=== PATIENT | female | born 1935 | race Caucasian/White ===

== ENCOUNTER 2017-07-06 12:48 | Day surgery (SDC) | payer MEDICARE ==
[2017-07-06] MEDS ORDERED: CEFAZOLIN/Water 2 GM/20 ML SYRINGE ONE (13:21)
[2017-07-06] MEDS ORDERED: Ketorolac Tromethamine 30 MG/ML VIAL ONE (13:21)
[2017-07-06 13:42] LABS: #Basophils 0.1 thou/uL (0.0-0.2); #Eosinphils 0.1 thou/uL (0.0-0.7); #Lymphocytes 2.8 thou/uL (1.20-3.40); #Monocytes 0.5 thou/uL (0.11-0.59); #Neutrophils 6.4 thou/uL (1.40-6.50); %Eosinophils 0.5 % (0.0-10.0); %Neutrophils 65.4 % (42.0-75.0); Hemoglobin 14.3 g/dL (12.0-16.0); Mean Corpuscular HGB CONC 32.7 g/dL (32.0-36.0); Mean Corpuscular Hemoglobin 30.2 pg (27.0-31.0); Mean Corpuscular Volume 92.4 fl (81.0-99.0); Mean Platelet Volume 6.5 fL (7.4-10.4); Platelet Count 236 thou/uL (130-400); RBC Distribution Width 11.9 % (11.5-14.5); Red Blood Cell (RBC) Count 4.73 mill/uL (4.20-5.40); White Blood Cell (WBC) Count 9.8 thou/uL (4.8-10.8)
[2017-07-06 14:06] LABS: Anion Gap 18 mmol/L (10-20); BUN (Urea Nitrogen) 19 mg/dL (9.8-20.1); Calc. Creatinine Clearance 0 mL/min (70-130); Calcium 10.4 mg/dL (7.8-10.44); Carbon Dioxide 21 mmol/L (23-31); Chloride 101 mmol/L (98-107); Estimated GFR-MDRD 52; Glucose 95 mg/dL (83-110); Potassium 4.8 mmol/L (3.5-5.1); Sodium 135 mmol/L (136-145)
[2017-07-06] MEDS ORDERED: Fentanyl 100 MCG/2 ML VIAL ONE (15:39)
[2017-07-06] MEDS ORDERED: Bupivacaine/Epinephrine 0.25% 30 ML VIAL ONE (15:43)
[2017-07-06] MEDS ORDERED: Lidocaine 1% PF 5 ML VIAL ONE (16:52)
[2017-07-06] MEDS ORDERED: Ondansetron HCl/PF 4 MG/2 ML Vial ONE (16:52)
[2017-07-06] MEDS ORDERED: Succinylcholine Chloride 20 MG/ML 10 ml SYRINGE FS ONE (16:52)
[2017-07-06] MEDS ORDERED: Propofol 200 MG/20 ML VIAL ONE (16:52)
[2017-07-06] MEDS ORDERED: ePHEDrine/0.9% NaCl/PF SYRINGE 50 mg/10 ml ONE (16:52)
--- NOTE | 2017-07-06 16:58 | RAD ---
ONE VIEW CHEST: HISTORY: Preoperative exam. COMPARISON: 01/23/2017 FINDINGS: Atherosclerosis of the aorta. Normal cardiac silhouette. Pulmonary vessels and hilum are normal. C ostophrenic angles are clear. No consolidation or mass. No pneumothorax or osseous abnormalities. IMPRESSION: 1. No acute cardiopulmonary process. 2. Atherosclerosis. POS: KARI
[2017-07-06] MEDS ORDERED: HYDROcodone/Acetaminophen 5/325 mg Tablet ONE (18:36)
--- NOTE | 2017-07-07 14:43 | OP ---
DATE OF PROCEDURE: 07/06/2017 PREOPERATIVE DIAGNOSIS: Painful incarcerated umbilical hernia. POSTOPERATIVE DIAGNOSIS: Painful incarcerated umbilical hernia. OPERATION PERFORMED: Repair of incarcerated umbilical hernia with 4.6 cm Parietex composite hernia [facility]. SURGEON: Dr. Jett Cotton. ANESTHESIA: General endotracheal. INDICATIONS: The patient is an 81-year-old white female. She presented on the day of surgery compla ining of a painful umbilical mass. This was consistent with a recently incarcerated umbilical hernia . There was overlying erythema. Due to her acute symptoms, I recommended repair. DESCRIPTION OF OPERATION: Informed consent was obtained. The patient was taken to the operating jose manuel m where general anesthesia was obtained with the patient in supine position. Abdomen was prepped wit h ChloraPrep and draped in sterile fashion. Local anesthesia was infiltrated using 0.25% Marcaine wi th epinephrine. Infraumbilical incision was created. Dissection was carried down to the fascia. Th e hernia and umbilicus have been carefully dissected, elevating the umbilical stalk off the underlyin g fascia and the hernia. The herniated mass was clearly identified and circumferentially dissected. It was circumscribed at its base. The herniated material was all clearly omental fat. This was cla mped and ligated with 2-0 silk tie and the herniated tissue was passed off the field. The fascial de fect was about 1.5 cm in diameter. I performed a preperitoneal dissection of the surrounding fatty t issue using blunt dissection. The fascial edges were trimmed as well. Hemostasis obtained externall y with electrocautery. A 4.6 cm Parietex composite patch was obtained. It was moistened, placed in the preperitoneal space and unfolded in the usual fashion. The lateral aspects of the fascial defect were approximated with interrupted sutures of 0 Prolene incorporating bites of the anterior leaflet of the mesh. The final fascial suture was placed in the center. The mesh was nicely opened undernea th the defect. Additional local anesthetic was infiltrated. The umbilicus was secured down to the f ascia with 2 interrupted sutures of 3-0 Vicryl. The wound was closed in layers with 3-0 and 4-0 [place] cryl and Dermabond was placed externally. A compression dressing was created using cotton balls and a Tegaderm dressing with air aspirated out of cotton balls in the usual fashion. There were no compl ications. The patient tolerated the procedure well and was taken to recovery room in stable conditio n.
== END 2017-07-06 19:12 | disposition home or self-care (01) ==
LOC: SDC 12:48
PROVIDERS: ATTEND Specialist
PROC: 0WUF0JZ Supplement Abdominal Wall with Synthetic Substitute, Open Approach (ICD-10-PCS; principal; 2017-07-06)
DX: K42.0 Umbilical hernia with obstruction, without gangrene (principal); M79.7 Fibromyalgia; M81.0 Age-related osteoporosis without current pathological fracture; K58.9 Irritable bowel syndrome, unspecified; J30.9 Allergic rhinitis, unspecified; E78.5 Hyperlipidemia, unspecified; I10 Essential (primary) hypertension; K21.9 Gastro-esophageal reflux disease without esophagitis; Z79.82 Long term (current) use of aspirin; Z79.899 Other long term (current) drug therapy; Z88.8 Allergy status to other drugs, medicaments and biological substances; Z90.49 Acquired absence of other specified parts of digestive tract; Z90.710 Acquired absence of both cervix and uterus; Z98.890 Other specified postprocedural states
CPT/HCPCS: 36415; 71010; 80048; 85025; 93005; 93010; J0131; J1885; J2001; J2405; J2704; J3010

== ENCOUNTER 2017-10-02 15:47 | Inpatient (IN) | payer MEDICARE ==
[~2017-10-02 15:47] MED LIST: ISOVUE-370 76%-LOCM 1 ML ONE
[2017-10-02 16:30] LABS: #Eosinphils 0.1 thou/uL (0.0-0.7); #Lymphocytes 1.8 thou/uL (1.20-3.40); #Monocytes 0.6 thou/uL (0.11-0.59); #Neutrophils 6.9 thou/uL (1.40-6.50); %Basophils 0.4 % (0.0-1.0); %Eosinophils 0.8 % (0.0-10.0); %Lymphocytes 19.3 % (21.0-51.0); %Monocytes 6.3 % (0.0-10.0); %Neutrophils 73.2 % (42.0-75.0); Hemoglobin 13.7 g/dL (12.0-16.0); Mean Corpuscular HGB CONC 33.3 g/dL (32.0-36.0); Mean Corpuscular Hemoglobin 29.5 pg (27.0-31.0); Mean Corpuscular Volume 88.8 fl (81.0-99.0); Platelet Count 208 thou/uL (130-400); RBC Distribution Width 12.4 % (11.5-14.5); Red Blood Cell (RBC) Count 4.65 mill/uL (4.20-5.40); White Blood Cell (WBC) Count 9.4 thou/uL (4.8-10.8)
[2017-10-02 17:00] LABS: CKMB 1.7 ng/mL (0-6.6); Troponin I 0.052 ng/mL (< 0.028)
--- NOTE | 2017-10-02 17:05 | RAD ---
PORTABLE UPRIGHT FRONTAL CHEST RADIOGRAPH: DATE: 10/02/17. COMPARISON: 07/06/17. HISTORY: Syncope, trauma. FINDINGS: Multiple postsurgical anchors overlie the right humeral head. There is no pneumothorax, pleural flui d, focal consolidation, or alveolar edema. IMPRESSION: No acute findings. POS: [facility]
--- NOTE | 2017-10-02 17:06 | CT ---
CT OF CERVICAL SPINE WITHOUT CONTRAST: INDICATION: History of syncopal episode and fall with neck pain. COMPARISON: None. FINDINGS: No acute fracture or subluxation is evident. Craniocervical junction appears within normal limits. There is some vacuum disk phenomenon C5-6 and C6-7. Osseous central canal appears relatively well pr eserved. The lung apices are clear. Prevertebral soft tissues are within normal limits. IMPRESSION: 1. No acute osseous abnormality. 2. Moderate multilevel spondylosis of the cervical spine. POS: [facility]
--- NOTE | 2017-10-02 17:07 | CT ---
HEAD CT WITHOUT CONTRAST: 10/02/17 COMPARISON: None. HISTORY: Syncopal episode, fall with head trauma. TECHNIQUE: Serial axial CT imaging obtained at 5 mm intervals from vertex through skull base without contrast. FINDINGS: Prominent scalp swelling is noted in the left frontal region with associated subcutaneous hematoma fo rmation, measuring up to 2-3 cm in greatest dimension. There is no associated calvarial fracture seen . The imaged paranasal sinuses/mastoid air cells are well aerated. There is atherosclerotic calcificati ons of the cavernous carotid arteries. There is no intracranial hemorrhage, midline shift, mass effect or ventricular enlargement. IMPRESSION: Prominent soft tissue swelling/subcutaneous hematoma in the left frontal scalp with no associated fra cture or intracranial hemorrhage. POS: [facility]
[2017-10-02 17:28] LABS: ALT (SGPT) 16 U/L (8-55); AST (SGOT) 16 U/L (5-34); Albumin 4.4 g/dL (3.4-4.8); Alkaline Phosphatase 57 U/L (40-150); Anion Gap 14 mmol/L (10-20); BUN (Urea Nitrogen) 19 mg/dL (9.8-20.1); Bilirubin, Total 0.6 mg/dL (0.2-1.2); CK (CPK) 69 U/L (29-168); Calc. Creatinine Clearance 0 mL/min (70-130); Calcium 9.8 mg/dL (7.8-10.44); Carbon Dioxide 24 mmol/L (23-31); Chloride 100 mmol/L (98-107); Estimated GFR-MDRD 34; Globulin 2.8 g/dL (2.4-3.5); Glucose 147 mg/dL (83-110); Lipase 28 U/L (8-78); Magnesium 2.1 mg/dL (1.6-2.6); Phosphorus 3.6 mg/dL (2.3-4.7); Potassium 4.5 mmol/L (3.5-5.1); Protein, Total 7.2 g/dL (6.0-8.3); Sodium 133 mmol/L (136-145)
[2017-10-02 18:14] LABS: Bilirubin Negative (Negative); Blood, Urine Negative (Negative); Clarity CLEAR (Clear); Glucose, Urine (Dipstick) Negative (Negative); Leukocyte Small (Negative); Nitrite Negative (Negative); Protein, Urine (Dipstick) 30 mg/dL (Neg-Trace); Urobilinogen 0.2 mg/dL (0.2-1.0)
[2017-10-02 18:17] LABS: Hyaline Casts/LPF 0-3 HYALINE CAST LPF (0-3 Hyaline); Squamous Epithelial 0-3 HPF (0-3)
[2017-10-02 18:18] LABS: Yeast-AUWi Flag 48.2 (0-25.0)
--- NOTE | 2017-10-02 18:21 | CT ---
CTA OF THE CHEST WITH CONTRAST 10/02/17 COMPARISON: None. HISTORY: Fall with shortness of breath. Intermittent dizziness and presyncope. Loss of consciousness for five minutes. TECHNIQUE: Multiple contiguous axial images were obtained in a CTA of the chest with contrast per pulmonary embo lism protocol. 3D oblique MIP reformats and direct reformats were performed. FINDINGS: The pulmonary arteries are well opacified without filling defect to suggest pulmonary emboli. The hea rt is normal in size without focal cardiac abnormality. No hilar or mediastinal lymphadenopathy are s een. No focal infiltrates are seen in the lungs. No suspicious pulmonary nodule is seen. No pneumothorax o r pleural effusion are present. Degenerative changes are seen in the spine. The chest wall soft tissues are unremarkable. The visuali zed subdiaphragmatic structures are unremarkable. IMPRESSION: No evidence of pulmonary thromboembolism. POS: RAJI
[2017-10-02 18:39] LABS: Bacteria/HPF 1+ HPF (None Seen); RBC/HPF 0-3 HPF (0-3)
[2017-10-02 18:40] LABS: Yeast-All Forms 1+ HPF (None Seen)
[2017-10-02] MEDS ORDERED: Acetaminophen 500 MG TAB ONE (18:42)
[2017-10-02 19:35] LABS: Troponin I 0.224 ng/mL (< 0.028)
[2017-10-02] MEDS ORDERED: Acetaminophen 325 MG TAB PO PRN ×2 (21:02→21:49)
[2017-10-02] MEDS ORDERED: Ondansetron HCl/PF 4 MG/2 ML Vial IVP PRN ×2 (21:02→21:49)
[2017-10-02] MEDS ORDERED: Ondansetron ODT 4 MG TAB SL PRN (21:02)
[2017-10-02] MEDS ORDERED: Loratadine 10 MG TAB PO PRN (21:49)
[2017-10-02] MEDS ORDERED: Artificial Tears 18 DROP/0.9 ML EA EYE PRN (21:49)
[2017-10-02] MEDS ORDERED: Sodium Chloride 0.65% Nasal 44 ML BOT EA NARE PRN (21:49)
[2017-10-02] MEDS ORDERED: Nitroglycerin 0.4 MG TAB (25 Tab Bottle) SL PRN (21:49)
[2017-10-02] MEDS ORDERED: hydrALAZINE 20 MG/ML VIAL SLOW IVP PRN (21:49)
[2017-10-02] MEDS ORDERED: Senokot 8.6 MG TAB PO PRN (21:49)
[2017-10-02] MEDS ORDERED: Chloraseptic Spray 180 ml Bottle PO PRN (21:49)
[2017-10-02] MEDS ORDERED: Mag-Al 1200 mg/1200 mg/30 ML UDCUP PO PRN (21:49)
[2017-10-02] MEDS ORDERED: Milk Of Magnesia 30 ML UDCUP PO PRN (21:49)
[2017-10-02] MEDS ORDERED: Loperamide HCl 2 MG CAP PO PRN (21:49)
[2017-10-02] MEDS ORDERED: HYDROcodone/Acetaminophen 5/325 mg Tablet PO PRN (21:49)
[2017-10-02] MEDS ORDERED: Zolpidem Tartrate 5 MG TAB PO PRN (21:49)
[2017-10-02] MEDS ORDERED: Eucerin (Mineral Oil/Petrolatum,White) 30 gm Jar TOP PRN (21:49)
[2017-10-02] MEDS ORDERED: Diabetic Tussin 200 MG/10 ML UDCUP PO PRN (21:49)
[2017-10-02] MEDS ORDERED: Ondansetron ODT 4 MG TAB PO PRN (21:49)
[2017-10-02] MEDS ORDERED: clonazePAM 0.5 MG TAB PO PRN (22:11)
[2017-10-02 22:47] LABS: Troponin I 0.262 ng/mL (< 0.028)
[2017-10-02] MEDS ORDERED: Latanoprost 0.005% Ophth Soln 2.5 ml Bottle EA EYE SCH (23:15)
[2017-10-02] MEDS ORDERED: Citalopram 20 MG TAB PO SCH (23:15)
[2017-10-02] MEDS ORDERED: Lisinopril 20 MG TAB PO SCH (23:15)
[2017-10-03 00:07] VITALS: BMI 26.2
--- NOTE | 2017-10-03 02:23 | HP ---
PRIMARY CARE PHYSICIAN: Dr. Jose. DATE OF SERVICE: 10/02/2017 REASON FOR ADMISSION: Syncope. HISTORY OF PRESENT ILLNESS: An 81-year-old female who came to the emergency room with complaint of syncopal episode today. The patient's called paramedics and subsequently she was brought to the ER. The patient reports that for last one week she was feeling dizziness. Today, she had episode of fall after painting and she hit her head. She developed hematoma on the scalp. She denies any neck pain. She denies any headaches. She denies any focal motor or sensory symptoms. She denies any back trauma. The patient reports that she does not have any recall of event, but per paramedics, she lost consciousness for about few minutes. The patient does report dyspnea on exertion as well as palpitation. Paramedics reported that they did EKG in the ambulance and they were worried about heart block. The patient is taking beta kelly therapy, but when she arrived to emergency room, she was tachycardic. The patient did not have any chest pain, but her headache was 8/10 in intensity. She denies any orthopnea, PND or leg swelling. She denies any fever or chills. She denies any UTI symptoms. She denies any constipation, diarrhea, melena or hematochezia. She denies any focal motor symptoms. She denies any seizure. She denied any incontinence of urine or stool. She denies any tongue bite. PAST MEDICAL HISTORY: Ovarian cyst, gastroesophageal reflux disease, hypertension, dyslipidemia. PAST SURGICAL HISTORY: Shoulder surgery, hysterectomy, tonsillectomy, hernia repair. PAST PSYCHIATRIC HISTORY: Anxiety and depression. SOCIAL HISTORY: The patient lives at home with her . No history of tobacco, alcohol or illicit drug abuse. FAMILY HISTORY: Positive for diabetes, coronary artery disease, and stroke among several family members. EMERGENCY ROOM COURSE: The patient is given Tylenol and IV fluid. ALLERGIES: CELEBREX, CELECOXIB and LOVASTATIN. CURRENT HOME MEDICATIONS: Toprol-XL 50 mg twice daily, potassium chloride 10 mEq p.o. twice daily, omeprazole 40 mg p.o. daily, Travatan ophthalmic drops at bedtime, lisinopril 20 mg twice daily, Bentyl 10 mg t.i.d. p.r.n., clonazepam 0.5 mg p.o. daily, aspirin 81 mg p.o. daily. REVIEW OF SYSTEMS: Please see my HPI for pertinent positive and negative. All other review of systems reviewed and negative except as mentioned in the HPI. The following complete review of systems was negative, unless otherwise mentioned in the HPI or below: Constitutional: Weight loss or gain, ability to conduct usual activities. Skin: Rash, itching. Eyes: Double vision, pain. ENT/Mouth: Nose bleeding, neck stiffness, pain, tenderness. Cardiovascular: Palpitations, dyspnea on exertion, orthopnea. Respiratory: Shortness of breath, wheezing, cough, hemoptysis, fever or night sweats. Gastrointestinal: Poor appetite, abdominal pain, heartburn, nausea, vomiting, constipation, or diarrhea. Genitourinary: Urgency, frequency, dysuria, nocturia. Musculoskeletal: Pain, swelling. Neurologic/Psychiatric: Anxiety, depression. Allergy/Immunologic: Skin rash, bleeding tendency. PHYSICAL EXAMINATION: VITAL SIGNS: Currently, blood pressure 167/85, pulse 75, respiratory rate 14, temperature 98.0, saturation 95% on room air. Weight 68.9 kilograms. GENERAL: The patient is currently alert, awake, no obvious acute distress. HEAD: Normocephalic. The patient does have hematoma on left parietal scalp, tender. EYES: Pupils round, reactive to light. Extraocular muscle intact. ENT: Oropharynx within normal limits. Moist mucous membrane, no oral lesion, no pharyngeal erythema, no exudate. NECK: Supple, no JVD, no thyromegaly, no carotid bruit. LUNGS: Clear to auscultation without any rhonchi or rales. CARDIAC: S1, S2 regular. No murmur, no gallop, no rub. ABDOMEN: Soft, bowel sounds present, nontender, nondistended. No organomegaly , no mass, no suprapubic tenderness. BACK: Unremarkable. No CVA tenderness. EXTREMITIES: Upper extremity, passive movement of all joints are normal. Lower extremity, no edema. Good peripheral pulsation. SKIN: No skin rash. HEMATOLOGICAL: No lymphadenopathy. PSYCHIATRIC: Normal affect. NEUROLOGIC: Nonfocal examination. SIGNIFICANT LABORATORY: EKG showing bigeminy pattern, sinus tachycardia, premature atrial complexes. CT brain based on my review, no acute intracranial process other than scalp hematoma. CT cervical spine negative for any fracture or dislocation. Chest x-ray negative for any acute cardiopulmonary process. CT angio negative for any pulmonary embolism. CBC: WBC 9.4, hemoglobin 13.7, platelet 208, D-dimer 0.78. BMP: Sodium 133, potassium 4.5, chloride 100, carbon dioxide 24, anion gap 14, BUN 19, creatinine 1.45, glucose 147, calcium 9.8, phosphorus 3.6, magnesium 2.1. LFT: AST 16, ALT 16, alkaline phosphatase 57, albumin 4.4, lipase 28. CK 69, CK-MB 1.7, troponin I 0.052. BNP 176.4. Urinalysis suspicious for UTI. ASSESSMENT AND PLAN: 1. Syncope. Unexplained, unwitnessed associated with scalp hematoma and elevated troponin as well as elevated BNP. No pulmonary embolism, worrisome for cardiac etiology given paramedics noted arrhythmias as well as the patient does have bigeminy. We will consult Cardiology. We will obtain echocardiography. We will monitor on telemetry floor. 2. Elevated troponin, rule out acute coronary syndrome. We will do serial cardiac enzymes x3. We will continue aspirin 81 mg p.o. daily. Cardiology will be consulted. We will obtain echocardiography. We will continue lisinopril and metoprolol as per home dosage. 3. Scalp hematoma. Because of scalp hematoma, we will avoid anticoagulant therapy for now, this is related with her episode of fall from syncope. 3. Elevated BNP. We will obtain echocardiography to assess ejection fraction and other structural abnormality to rule out any congestive heart failure. 4. Elevated D-dimer were negative for pulmonary embolism. 5. Urinary tract infection. We will send urine culture. At this point, we are not starting antibiotic therapy given the patient does not have any urinary tract infection symptoms and she is afebrile and no leukocytosis. We will monitor in hospital. 6. Anxiety and depression. We will continue clonazepam and Celexa as per home dosage. 7. Gastroesophageal reflux disease. Continue Pepcid 20 mg p.o. daily. 8. Glaucoma. Continue Xalatan eye drops as per home dosage. 9. Hypertension. Continue lisinopril 20 mg p.o. b.i.d. and Toprol-XL 50 mg p.o. b.i.d. 10. Code status: The patient is full code. The patient's is surrogate decision maker. DISPOSITION PLAN: Based on clinical course. We are expecting patient's stay in hospital more than 2 midnights. Plan of care discussed with the patient in detail. HECTOR
[2017-10-03 05:23] LABS: #Basophils 0.1 thou/uL (0.0-0.2); #Lymphocytes 2.5 thou/uL (1.20-3.40); #Monocytes 0.6 thou/uL (0.11-0.59); #Neutrophils 4.4 thou/uL (1.40-6.50); %Basophils 0.8 % (0.0-1.0); %Eosinophils 0.5 % (0.0-10.0); %Lymphocytes 33.2 % (21.0-51.0); %Monocytes 7.3 % (0.0-10.0); %Neutrophils 58.1 % (42.0-75.0); Hemoglobin 12.6 g/dL (12.0-16.0); Mean Corpuscular HGB CONC 33.2 g/dL (32.0-36.0); Mean Corpuscular Volume 90.6 fl (81.0-99.0); Mean Platelet Volume 7.2 fL (7.4-10.4); Platelet Count 192 thou/uL (130-400); RBC Distribution Width 12.5 % (11.5-14.5); White Blood Cell (WBC) Count 7.6 thou/uL (4.8-10.8)
[2017-10-03 05:41] LABS: Anion Gap 11 mmol/L (10-20); BUN (Urea Nitrogen) 15 mg/dL (9.8-20.1); Calc. Creatinine Clearance 44 mL/min (70-130); Carbon Dioxide 23 mmol/L (23-31); Chloride 103 mmol/L (98-107); Estimated GFR-MDRD 50; Glucose 101 mg/dL (83-110); Potassium 4.3 mmol/L (3.5-5.1); Sodium 133 mmol/L (136-145)
[2017-10-03] MEDS: Lisinopril 20 MG TAB PO SCH ×2 (10:06→22:25)
[2017-10-03] MEDS: Potassium Chloride 10 MEQ TAB PO SCH ×4 (10:12→22:26)
[2017-10-03] MEDS: Aspirin 81 mg Enteric Coated Tablet PO SCH (10:12)
[2017-10-03] MEDS: Famotidine 20 MG TAB PO SCH (10:13)
--- NOTE | 2017-10-03 14:18 | PDOC.PN ---
- Subjective Encounter Start Date: 10/03/17 Encounter Start Time: 14:16 Subjective: feels better..left shoulder pain -: no palpitations but has been ahving these symptoms for few weeks -: lot of stress d/t an adult son w TBI - Objective Resuscitation Status: Resuscitation Status FULL:Full Resuscitation MAR Reviewed: Yes Vital Signs & Weight: Vital Signs (12 hours) Temp Pulse Pulse Pulse Pulse Pulse Pulse 10/03/17 11:08 70 68 71 71 69 10/03/17 10:06 10/03/17 08:10 74 70 71 71 10/03/17 08:00 97.6 F 69 10/03/17 04:00 98.3 F 64 Resp BP BP BP BP BP BP 10/03/17 11:08 155/72 H 184/79 H 170/76 H 182/77 H 160/67 H 10/03/17 10:06 130/60 10/03/17 08:10 173/79 H 157/69 H 155/74 H 160/72 H 10/03/17 08:00 18 10/03/17 04:00 18 BP Pulse Ox Pulse Ox Pulse Ox Pulse Ox Pulse Ox 10/03/17 11:08 97 94 L 97 94 L 10/03/17 10:06 10/03/17 08:10 10/03/17 08:00 130/60 97 10/03/17 04:00 156/70 H 95 I&O: 10/02/17 10/03/17 10/04/17 06:59 06:59 06:59 Intake Total 220 0 Output Total 1350 Balance -1130 0 Result Diagrams: 10/03/17 04:34 10/03/17 04:34 Additional Labs: Accuchecks 10/03/17 11:57 POC Glucose 103 Microbiology 10/02/17 18:00 Urine voided Urine Culture - Preliminary NO GROWTH AT 24 HOURS Laboratory Tests 10/02/17 10/02/17 10/02/17 16:25 16:25 19:08 Troponin I 0.052 H 0.224 H B-Natriuretic Peptide 176.4 H 10/02/17 22:10 Troponin I 0.262 H B-Natriuretic Peptide Radiology Reviewed by me: Yes EKG Reviewed by me: Yes Phys Exam - Physical Examination Constitutional: NAD HEENT: PERRLA, moist MMs, sclera anicteric, oral pharynx no lesions Neck: no nodes, no JVD, supple, full ROM Respiratory: no wheezing, no rales, no rhonchi, clear to auscultation bilateral Cardiovascular: RRR, no significant murmur Gastrointestinal: soft, non-tender, no distention, positive bowel sounds Musculoskeletal: no edema, pulses present Neurological: non-focal, normal sensation, moves all 4 limbs Psychiatric: normal affect, A&O x 3 Skin: no rash Dx/Plan (1) Syncope and collapse Code(s): R55 - SYNCOPE AND COLLAPSE Status: Acute Comment: ? CHB/arrythmia (2) Troponin level elevated Code(s): R74.8 - ABNORMAL LEVELS OF OTHER SERUM ENZYMES Status: Acute Comment: likley demand ischemia (3) Scalp contusion Code(s): S00.03XA - CONTUSION OF SCALP, INITIAL ENCOUNTER Status: Acute (4) UTI (urinary tract infection) Status: Suspected Comment: urine Cx pending.No ABx for now (5) HTN (hypertension) Code(s): I10 - ESSENTIAL (PRIMARY) HYPERTENSION Status: Acute (6) Anxiety Code(s): F41.9 - ANXIETY DISORDER, UNSPECIFIED Status: Acute (7) GERD (gastroesophageal reflux disease) Code(s): K21.9 - GASTRO-ESOPHAGEAL REFLUX DISEASE WITHOUT ESOPHAGITIS Status: Acute (8) CKD (chronic kidney disease) stage 3, GFR 30-59 ml/min Code(s): N18.3 - CHRONIC KIDNEY DISEASE, STAGE 3 (MODERATE) Status: Acute - Plan DVT proph w/SCDs cont home meds.ECHO pending.cardiology to see -: may need EP Vs Evenet monitor. -: NSR for now. -: follow final urine Cx.asymptomatic -: cont home meds as below.add prn Xanax * . Review of Systems - Review of Systems Constitutional: negative: fever, chills, sweats, weakness, malaise, other ENT: negative: Ear Pain, Ear Discharge, Nose Pain, Nose Discharge, Nose Congestion, Mouth Pain, Mouth Swelling, Throat Pain, Throat Swelling, Other Respiratory: negative: Cough, Dry, Shortness of Breath, Hemoptysis, SOB with Excertion, Pleuritic Pain, Sputum, Wheezing Cardiovascular: light headedness. negative: chest pain, palpitations, orthopnea , paroxysmal nocturnal dyspnea, edema, other Gastrointestinal: negative: Nausea, Vomiting, Abdominal Pain, Diarrhea, Constipation, Melena, Hematochezia, Other Genitourinary: negative: Dysuria, Frequency, Incontinence, Hematuria, Retention , Other Musculoskeletal: Shoulder Pain Skin: negative: Rash, Lesions, Allan, Bruising, Other Neurological: negative: Weakness, Numbness, Incoordination, Change in Speech, Confusion, Seizures, Other - Medications/Allergies Allergies/Adverse Reactions: Allergies Allergy/AdvReac Type Severity Reaction Status Date / Time celecoxib [From Celebrex] Allergy Severe Rash Verified 02/27/14 17:50 lovastatin AdvReac Verified 02/27/14 17:50 Medications: Current Medications Acetaminophen (Tylenol) 650 mg PO Q4H PRN PRN Reason: Headache/Fever or Pain Hydrocodone Bitart/Acetaminophen ([place] 5/325) 1 tab PO Q4H PRN PRN Reason: Moderate Pain (4-6) Al Hydroxide/Mg Hydroxide (Maalox) 30 ml PO Q6H PRN PRN Reason: Heartburn or Indigestion Artificial Tears (Tears Naturale) 0 drop EA EYE PRN PRN PRN Reason: Dry Eyes Aspirin (Ecotrin) 81 mg PO DAILY [facility] Last Admin: 10/03/17 10:12 Dose: 81 mg Citalopram Hydrobromide (Celexa) 20 mg PO HS [facility] Clonazepam (Klonopin) 0.5 mg PO DAILYPRN PRN PRN Reason: Anxiety Famotidine (Pepcid) 20 mg PO DAILY [facility] Last Admin: 10/03/17 10:13 Dose: 20 mg Guaifenesin (Robitussin Sf) 200 mg PO Q4H PRN PRN Reason: Cough Hydralazine HCl (Apresoline) 10 mg SLOW IVP Q4H PRN PRN Reason: Systolic BP > 180 Latanoprost (Xalatan 0.005% Ophth Soln) 1 drop EA EYE [facility] Lisinopril (Zestril) 20 mg PO BID [facility] Last Admin: 10/03/17 10:06 Dose: 20 mg Loperamide HCl (Imodium) 2 mg PO PRN PRN PRN Reason: Diarrhea/Loose Stools Loratadine (Claritin) 10 mg PO DAILYPRN PRN PRN Reason: Sinus Symptoms Magnesium Hydroxide (Milk Of Magnesium) 30 ml PO DAILYPRN PRN PRN Reason: Constipation Metoprolol Succinate (Toprol Xl) 50 mg PO BID [facility] Last Admin: 10/03/17 10:13 Dose: 50 mg Mineral Oil/White Petrolatum (Eucerin Cream) 0 gm TOP BIDPRN PRN PRN Reason: Dry Skin Nitroglycerin (Nitrostat) 0.4 mg SL Q5MIN PRN PRN Reason: Chest Pain Ondansetron HCl (Zofran Odt) 4 mg PO Q6H PRN PRN Reason: Nausea/Vomiting Ondansetron HCl (Zofran) 4 mg IVP Q6H PRN PRN Reason: Nausea/Vomiting Phenol (Chloraseptic [place] 180 Ml Bot) 0 ml PO PRN PRN PRN Reason: Sore Throat Potassium Chloride (Klor-Con 10) 10 meq PO BID [facility] Last Admin: 10/03/17 10:12 Dose: 10 meq Senna (Senokot) 2 tab PO HSPRN PRN PRN Reason: Constipation Sodium Chloride ([place] Nasal [place] 0.65%) 0 ml EA NARE QIDPRN PRN PRN Reason: Nasal Congestion Zolpidem Tartrate (Ambien) 5 mg PO HSPRN PRN PRN Reason: Insomnia
[2017-10-03] MEDS ORDERED: ALPRAZolam 0.25 MG TAB PO PRN (14:24)
--- NOTE | 2017-10-03 16:24 | RAD ---
THREE VIEWS LEFT SHOULDER: Indication: Fall, left shoulder pain. IMPRESSION: No acute fracture or subluxation is evident. There is diffuse osteopenia. 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 The visualized left lung is clear. POS: [facility]
[2017-10-03] MEDS ORDERED: TRAVOPROST EA EYE SCH ×2 (21:00)
[2017-10-03] MEDS: Citalopram 20 MG TAB PO SCH (22:26)
[2017-10-03] MEDS: Latanoprost 0.005% Ophth Soln 2.5 ml Bottle EA EYE SCH (22:26)
--- NOTE | 2017-10-04 08:53 | CON ---
DATE OF CONSULTATION: 10/03/2017 CARDIOLOGY CONSULTATION REASON FOR CONSULTATION: Supraventricular tachycardia, syncope. HISTORY OF PRESENT ILLNESS: Ms. Woodson is an 81-year-old woman the patient who was admitted to the hospital after a syncopal episode. The patient had been in her kitchen, she had not been feeling wel l during the day, but she had went into her kitchen. She had warmed up some food, she was standing t here and she thought she was maybe getting ready to get a drink. In retrospect, she thinks she may h ave had her heart rate getting faster, feeling it going fast. The next thing she know she had fainte d and was being awakened. The patient has brought here for further therapy and evaluation. She got very little warning and she hit her head and got a black eye and hit her shoulder. PAST MEDICAL HISTORY: 1. Ovarian cyst. 2. Esophageal reflux. 3. Hypertension. PAST SURGICAL HISTORY: Shoulder surgery, rotator cuff of the right arm years ago. PSYCHIATRIC HISTORY: Negative for any significant findings. SOCIAL HISTORY: Lives at home with her . FAMILY HISTORY: Positive for diabetes. ALLERGIES: CELEBREX. MEDICATIONS: 1. Toprol-XL 50 mg twice a day. 2. Potassium. 3. Omeprazole. 4. Lisinopril. REVIEW OF SYSTEMS: CONSTITUTIONAL: No significant weight gain or loss. VISION: No changes. HEARING: No changes. PULMONARY: No cough or wheezing. GASTROINTESTINAL: No nausea, vomiting, or diarrhea. SKIN: No rashes. NEUROLOGIC: No unilateral weakness or numbness. PSYCHIATRIC: No unusual depression or anxiety. PHYSICAL EXAMINATION: GENERAL: This is a pleasant elderly woman resting comfortably in no distress. VITAL SIGNS: Blood pressure variable, most recently 149/69, pulse 70. HEENT: Eyes: Sclerae nonicteric. Mouth: Mucous membranes moist. NECK: Supple, no lymphadenopathy. LUNGS: Clear, no wheezing, rales or rhonchi. CARDIAC: Normal S1, normal S2. There is no murmur, rub or gallop. ABDOMEN: Soft, nontender, no hepatosplenomegaly. EXTREMITIES: Warm, dry, no clubbing or cyanosis. There is no edema. PSYCHIATRIC: Mood and affect normal. NEUROLOGIC: Grossly normal. She does have some ecchymosis around the left eye. LABORATORY DATA: Pertinent troponin 0.224. BNP 176. Echocardiogram reveals an ejection fraction of 55% to 60%, mild mitral regurgitation, trace tricuspid insufficiency. Recent stress test in the off 2016 showed no ischemia. ASSESSMENT: 1. Syncopal episode. 2. Supraventricular tachycardia, rate of about 180 despite beta blockers. PLAN: Consult with Electrophysiology to see whether EP study and/or ablation may be indicated. We w ill give her liquid breakfast and then n.p.o. until seen by Dr. Snider.
[2017-10-04] MEDS: Lisinopril 20 MG TAB PO SCH ×2 (09:44→21:09)
[2017-10-04] MEDS: Potassium Chloride 10 MEQ TAB PO SCH ×4 (09:45→21:09)
[2017-10-04] MEDS: Famotidine 20 MG TAB PO SCH (09:45)
[2017-10-04] MEDS: Aspirin 81 mg Enteric Coated Tablet PO SCH (09:48)
--- NOTE | 2017-10-04 10:14 | PDOC.PN ---
- Subjective Encounter Start Date: 10/04/17 Encounter Start Time: 07:30 -: old records requested/rev Patient seen and examined. No new complaints. No overnight events - Objective Resuscitation Status: Resuscitation Status FULL:Full Resuscitation MAR Reviewed: Yes Vital Signs & Weight: Vital Signs (12 hours) Temp Pulse Resp BP BP Pulse Ox 10/04/17 07:38 98.3 F 61 18 95 10/04/17 07:32 98.3 F 61 18 141/67 H 95 10/04/17 04:00 98.4 F 69 18 134/62 93 L 10/03/17 23:57 97.8 F 66 16 145/68 H 100 10/03/17 22:25 130/60 Weight Weight 152 lb 6 oz I&O: 10/03/17 10/04/17 10/05/17 06:59 06:59 06:59 Intake Total 220 600 Output Total 1350 300 Balance -1130 300 Result Diagrams: 10/03/17 04:34 10/03/17 04:34 Additional Labs: Accuchecks 10/03/17 11:57 POC Glucose 103 Radiology Reviewed by me: Yes (echo) EKG Reviewed by me: Yes Phys Exam - Physical Examination Constitutional: NAD HEENT: PERRLA, moist MMs, sclera anicteric Neck: no JVD, supple Respiratory: no wheezing, no rales, no rhonchi Cardiovascular: RRR, no significant murmur, no rub Gastrointestinal: soft, non-tender, no distention, positive bowel sounds Musculoskeletal: no edema, pulses present Neurological: non-focal, normal sensation, moves all 4 limbs Psychiatric: normal affect, A&O x 3 Skin: no rash, normal turgor Dx/Plan (1) Scalp contusion Code(s): S00.03XA - CONTUSION OF SCALP, INITIAL ENCOUNTER Status: Acute (2) Syncope and collapse Code(s): R55 - SYNCOPE AND COLLAPSE Status: Acute Comment: ? CHB/arrythmia (3) Troponin level elevated Code(s): R74.8 - ABNORMAL LEVELS OF OTHER SERUM ENZYMES Status: Acute Comment: likley demand ischemia (4) Anxiety and depression Code(s): F41.9 - ANXIETY DISORDER, UNSPECIFIED; F32.9 - MAJOR DEPRESSIVE DISORDER, SINGLE EPISODE, UNSPECIFIED Status: Chronic (5) CKD (chronic kidney disease) stage 3, GFR 30-59 ml/min Code(s): N18.3 - CHRONIC KIDNEY DISEASE, STAGE 3 (MODERATE) Status: Chronic (6) GERD (gastroesophageal reflux disease) Code(s): K21.9 - GASTRO-ESOPHAGEAL REFLUX DISEASE WITHOUT ESOPHAGITIS Status: Chronic (7) HTN (hypertension) Code(s): I10 - ESSENTIAL (PRIMARY) HYPERTENSION Status: Chronic (8) UTI (urinary tract infection) Status: Suspected Comment: urine Cx pending.No ABx for now - Plan cont current plan of care * EP consulted * medication reviewed as below * symptomatic treatment * will monitor on tele. Review of Systems - Review of Systems ENT: negative: Ear Pain, Ear Discharge, Nose Pain, Nose Discharge, Nose Congestion, Mouth Pain, Mouth Swelling, Throat Pain, Throat Swelling, Other Respiratory: negative: Cough, Dry, Shortness of Breath, Hemoptysis, SOB with Excertion, Pleuritic Pain, Sputum, Wheezing Cardiovascular: negative: chest pain, palpitations, orthopnea, paroxysmal nocturnal dyspnea, edema, light headedness, other Gastrointestinal: negative: Nausea, Vomiting, Abdominal Pain, Diarrhea, Constipation, Melena, Hematochezia, Other Genitourinary: negative: Dysuria, Frequency, Incontinence, Hematuria, Retention , Other Musculoskeletal: negative: Neck Pain, Shoulder Pain, Arm Pain, Back Pain, Hand Pain, Leg Pain, Foot Pain, Other Skin: negative: Rash, Lesions, Allan, Bruising, Other - Medications/Allergies Allergies/Adverse Reactions: Allergies Allergy/AdvReac Type Severity Reaction Status Date / Time celecoxib [From Celebrex] Allergy Severe Rash Verified 02/27/14 17:50 lovastatin AdvReac Verified 02/27/14 17:50 Medications: Current Medications Acetaminophen (Tylenol) 650 mg PO Q4H PRN PRN Reason: Headache/Fever or Pain Hydrocodone Bitart/Acetaminophen ([place] 5/325) 1 tab PO Q4H PRN PRN Reason: Moderate Pain (4-6) Al Hydroxide/Mg Hydroxide (Maalox) 30 ml PO Q6H PRN PRN Reason: Heartburn or Indigestion Alprazolam (Xanax) 0.25 mg PO BIDPRN PRN PRN Reason: Anxiety Artificial Tears (Tears Naturale) 0 drop EA EYE PRN PRN PRN Reason: Dry Eyes Aspirin (Ecotrin) 81 mg PO DAILY [facility] Last Admin: 10/04/17 09:48 Dose: 81 mg Citalopram Hydrobromide (Celexa) 20 mg PO [facility] Last Admin: 10/03/17 22:26 Dose: 20 mg Clonazepam (Klonopin) 0.5 mg PO DAILYPRN PRN PRN Reason: Anxiety Famotidine (Pepcid) 20 mg PO DAILY [facility] Last Admin: 10/04/17 09:45 Dose: 20 mg Guaifenesin (Robitussin Sf) 200 mg PO Q4H PRN PRN Reason: Cough Hydralazine HCl (Apresoline) 10 mg SLOW IVP Q4H PRN PRN Reason: Systolic BP > 180 Latanoprost (Xalatan 0.005% Oph Soln) 1 drop EA EYE [facility] Last Admin: 10/03/17 22:26 Dose: 1 drop Lisinopril (Zestril) 20 mg PO BID [facility] Last Admin: 10/04/17 09:44 Dose: 20 mg Loperamide HCl (Imodium) 2 mg PO PRN PRN PRN Reason: Diarrhea/Loose Stools Loratadine (Claritin) 10 mg PO DAILYPRN PRN PRN Reason: Sinus Symptoms Magnesium Hydroxide (Milk Of Magnesium) 30 ml PO DAILYPRN PRN PRN Reason: Constipation Metoprolol Succinate (Toprol Xl) 50 mg PO BID [facility] Last Admin: 10/04/17 09:45 Dose: 50 mg Mineral Oil/White Petrolatum (Eucerin Cream) 0 gm TOP BIDPRN PRN PRN Reason: Dry Skin Nitroglycerin (Nitrostat) 0.4 mg SL Q5MIN PRN PRN Reason: Chest Pain Ondansetron HCl (Zofran Odt) 4 mg PO Q6H PRN PRN Reason: Nausea/Vomiting Ondansetron HCl (Zofran) 4 mg IVP Q6H PRN PRN Reason: Nausea/Vomiting Phenol (Chloraseptic [place] 180 Ml Bot) 0 ml PO PRN PRN PRN Reason: Sore Throat Potassium Chloride (Klor-Con 10) 10 meq PO BID [facility] Last Admin: 10/04/17 09:45 Dose: 10 meq Senna (Senokot) 2 tab PO HSPRN PRN PRN Reason: Constipation Sodium Chloride ([place] Nasal [place] 0.65%) 0 ml EA NARE QIDPRN PRN PRN Reason: Nasal Congestion Zolpidem Tartrate (Ambien) 5 mg PO HSPRN PRN PRN Reason: Insomnia
[2017-10-04] MEDS ORDERED: Flecainide 50 MG TAB PO SCH ×2 (12:45)
[2017-10-04] MEDS: Flecainide 50 MG TAB PO SCH ×2 (21:09)
[2017-10-04] MEDS: Citalopram 20 MG TAB PO SCH (21:09)
[2017-10-04] MEDS: Latanoprost 0.005% Ophth Soln 2.5 ml Bottle EA EYE SCH (21:09)
[2017-10-05] MEDS: Aspirin 81 mg Enteric Coated Tablet PO SCH (09:10)
[2017-10-05] MEDS: Flecainide 50 MG TAB PO SCH ×4 (09:10→20:28)
[2017-10-05] MEDS: Potassium Chloride 10 MEQ TAB PO SCH ×4 (09:10→20:29)
[2017-10-05] MEDS: Lisinopril 20 MG TAB PO SCH ×2 (09:11→20:28)
[2017-10-05] MEDS: Famotidine 20 MG TAB PO SCH (09:11)
--- NOTE | 2017-10-05 10:02 | PRG ---
DATE OF SERVICE: 09/20/2017 SUBJECTIVE: Chintan is feeling fine. No complaints. She was started on flecainide yesterday by Dr. Snider until an ablation could be done of her atrial tac hycardia. The patient is tolerating the flecainide well. She is in normal sinus rhythm. ASSESSMENT: 1. Syncope, probably related to atrial tachycardia. 2. Negative stress test on 2016. PLAN: 1. She has been started on flecainide by Dr. Snider. 2. Dr. Snider recommended she would be monitored until tomorrow and could be released home. We have a sked for an event monitor to be made available at her home. Will call back later to the atrial tachy cardia ablation.
--- NOTE | 2017-10-05 11:31 | CON ---
DATE OF CONSULTATION: 10/04/2017 ELECTROPHYSIOLOGY CONSULTATION REPORT REFERRING PHYSICIAN: Dr. Weldon I am seeing Ms. Woodson at our [facility] telemetry floor as an electrophysiology baby registry sales consultant for the following problems: 1. Syncopal spell. 2. Supraventricular tachycardia, possible paroxysmal atrial tachycardia documented on telemetry. 3. History of rheumatic heart disease with rheumatic fever as a child. 4. Preserved LVEF at 55% to 60%, normal left atrial size, mild MR, suction normal valve without sten osis or regurgitation on an echocardiogram from 09/27/2017. 5. History of hypertension. 6. GERD. ALLERGIES: CELEBREX. MEDICATIONS: At home include Toprol-XL, potassium, omeprazole, and lisinopril. SUBJECTIVE: Ms. Woodson is an 81-year-old woman who has had remote history of rheumatic fever as a c hild, later diagnosed in her 20s, but no prior history of arrhythmia. This lady has been at her [facility], for about 2 weeks, though she has been experiencing increasing lightheadedness, episodes ar e usually quickly resolved with sitting down, but just prior to admission she actually passed out whi le doing chores in the kitchen. The episode of loss of consciousness was short, not associated with seizure activity or incontinence, had no stroke-like symptoms associated with this. She denies chest pains, although she does have chronic dyspnea on exertion. In fact, she underwent investigated by Woodrow Sinclair. REVIEW OF SYSTEMS: Rest of 12-point system is unremarkable. PAST MEDICAL HISTORY: As above, also includes ovarian cyst, GERD, hypertension, and dyslipidemia. S he also has history of anxiety and depression. SOCIAL HISTORY: Significant for no tobacco, ETOH or drug use. Lives at home with . PAST SURGICAL HISTORY: Significant for shoulder surgery, hysterectomy, tonsillectomy, hernia repair. FAMILY HISTORY: Significant for diabetes, coronary artery disease and strokes. She actually has also significant family stress due to her son who had a traumatic brain injury as we ll as the recent of her sister. OBJECTIVE DATA: VITAL SIGNS: Blood pressure is 141/67, heart rate 61, respiration is 18, temperature 98.3 degrees Fa hrenheit. GENERAL: She is alert and oriented woman in no apparent distress. NECK: Supple. Jugular veins not distended. CHEST: Coarse without crackles. CARDIOVASCULAR: Heart sounds are regular to rate and rhythm. No murmur or gallop. ABDOMEN: Benign. Bowel sounds positive. EXTREMITIES: Lower extremities without edema, clubbing or cyanosis. Pulses are adequate. NEUROLOGIC: Patient is nonfocal. MUSCULOSKELETAL: No joint swelling or deformities. SKIN: Without rash. DATABASE: EKGs reviewed reveals sinus rhythm with a burst of paroxysmal atrial tachycardia are well documented. These episodes terminating ranging between a couple of beats after 10-20 seconds r un. LABORATORY DATA: White count 7.6, hemoglobin 12.6, and platelet count is 192. Sodium 133, potassium 4.3, BUN is 15, creatinine 1.05. Troponin levels are borderline at 0.05, 0.22, 0.26. BNP 176. Chest x-ray was without acute findings. Brain CT was no intracranial hemorrhage. Chest CT from [facility] reveals no evidence of pulmonary thromboembolism. ASSESSMENT AND PLAN: Ms. Woodson is a very pleasant 81-year-old woman with prior history of hyperten liang, hyperlipidemia, and possibly rheumatic fever as a child. She has not had prior major cardiac i ssues, but now she is presenting with a syncopal spell with ongoing dizzy spells for last 2 weeks. S he has well documented runs of paroxysmal atrial tachyarrhythmias. We discussed the potential contribution of these atrial arrhythmias to her symptoms. She clearly miriam l need some suppression of these atrial arrhythmias. Discussed treatment options including ablation therapy versus suppressive therapy as well. Initially, we will attempt suppression with antiarrhythm ic agents, hence the beta kelly alone was not successful. Dronedarone versus sotalol could be cons idered. Alternatively, at a later date, we will schedule her for potential ablation procedure as an outpatient. She might benefit from venous isolation procedure as well to prevent further deteriorati on of the atrial fibrillation. These issues were discussed with her. Thank you for allowing me to participate in the care of this patient.
--- NOTE | 2017-10-05 12:10 | PDOC.PN ---
- Subjective Encounter Start Date: 10/05/17 Encounter Start Time: 07:15 Patient seen and examined. No new complaints. No overnight events - Objective Resuscitation Status: Resuscitation Status FULL:Full Resuscitation MAR Reviewed: Yes Vital Signs & Weight: Vital Signs (12 hours) Temp Pulse Resp BP Pulse Ox 10/05/17 07:42 98.3 F 64 18 95 10/05/17 07:26 98.3 F 64 18 159/74 H 95 10/05/17 04:00 97.9 F 67 16 159/70 H 96 Weight Weight 151 lb 8 oz I&O: 10/04/17 10/05/17 10/06/17 06:59 06:59 06:59 Intake Total 600 1760 Output Total 300 2800 Balance 300 -1040 Result Diagrams: 10/03/17 04:34 10/03/17 04:34 EKG Reviewed by me: Yes Phys Exam - Physical Examination Constitutional: NAD HEENT: PERRLA, moist MMs, sclera anicteric Neck: no JVD, supple Respiratory: no wheezing, no rales, no rhonchi Cardiovascular: RRR, no significant murmur, no rub Gastrointestinal: soft, non-tender, no distention, positive bowel sounds Musculoskeletal: no edema, pulses present Neurological: non-focal, normal sensation, moves all 4 limbs Psychiatric: normal affect, A&O x 3 Skin: no rash, normal turgor Dx/Plan (1) Syncope and collapse Code(s): R55 - SYNCOPE AND COLLAPSE Status: Acute Comment: ? CHB/arrythmia (2) Scalp contusion Code(s): S00.03XA - CONTUSION OF SCALP, INITIAL ENCOUNTER Status: Acute (3) Troponin level elevated Code(s): R74.8 - ABNORMAL LEVELS OF OTHER SERUM ENZYMES Status: Acute Comment: likley demand ischemia (4) Anxiety and depression Code(s): F41.9 - ANXIETY DISORDER, UNSPECIFIED; F32.9 - MAJOR DEPRESSIVE DISORDER, SINGLE EPISODE, UNSPECIFIED Status: Chronic (5) CKD (chronic kidney disease) stage 3, GFR 30-59 ml/min Code(s): N18.3 - CHRONIC KIDNEY DISEASE, STAGE 3 (MODERATE) Status: Chronic (6) GERD (gastroesophageal reflux disease) Code(s): K21.9 - GASTRO-ESOPHAGEAL REFLUX DISEASE WITHOUT ESOPHAGITIS Status: Chronic (7) HTN (hypertension) Code(s): I10 - ESSENTIAL (PRIMARY) HYPERTENSION Status: Chronic (8) UTI (urinary tract infection) Status: Ruled-out Comment: (9) SVT (supraventricular tachycardia) Code(s): I47.1 - SUPRAVENTRICULAR TACHYCARDIA Status: Acute - Plan cont current plan of care * continue flaicanide as per EP * monitor EKG changes * medication reviewed as below * symptomatic treatment * expecting discharge when EP and cardiology OK. Review of Systems - Review of Systems Eyes: negative: Pain, Vision Change, Conjunctivae Inflammation, Eyelid Inflammation, Redness, Other ENT: negative: Ear Pain, Ear Discharge, Nose Pain, Nose Discharge, Nose Congestion, Mouth Pain, Mouth Swelling, Throat Pain, Throat Swelling, Other Respiratory: negative: Cough, Dry, Shortness of Breath, Hemoptysis, SOB with Excertion, Pleuritic Pain, Sputum, Wheezing Cardiovascular: negative: chest pain, palpitations, orthopnea, paroxysmal nocturnal dyspnea, edema, light headedness, other Gastrointestinal: negative: Nausea, Vomiting, Abdominal Pain, Diarrhea, Constipation, Melena, Hematochezia, Other Genitourinary: negative: Dysuria, Frequency, Incontinence, Hematuria, Retention , Other Musculoskeletal: negative: Neck Pain, Shoulder Pain, Arm Pain, Back Pain, Hand Pain, Leg Pain, Foot Pain, Other Skin: negative: Rash, Lesions, Allan, Bruising, Other - Medications/Allergies Allergies/Adverse Reactions: Allergies Allergy/AdvReac Type Severity Reaction Status Date / Time celecoxib [From Celebrex] Allergy Severe Rash Verified 02/27/14 17:50 lovastatin AdvReac Verified 02/27/14 17:50 Medications: Current Medications Acetaminophen (Tylenol) 650 mg PO Q4H PRN PRN Reason: Headache/Fever or Pain Last Admin: 10/04/17 13:23 Dose: 650 mg Hydrocodone Bitart/Acetaminophen ([place] 5/325) 1 tab PO Q4H PRN PRN Reason: Moderate Pain (4-6) Al Hydroxide/Mg Hydroxide (Maalox) 30 ml PO Q6H PRN PRN Reason: Heartburn or Indigestion Alprazolam (Xanax) 0.25 mg PO BIDPRN PRN PRN Reason: Anxiety Artificial Tears (Tears Naturale) 0 drop EA EYE PRN PRN PRN Reason: Dry Eyes Aspirin (Ecotrin) 81 mg PO DAILY [facility] Last Admin: 10/05/17 09:10 Dose: 81 mg Citalopram Hydrobromide (Celexa) [address] [facility] Last Admin: 10/04/17 21:09 Dose: 20 mg Clonazepam (Klonopin) 0.5 mg PO DAILYPRN PRN PRN Reason: Anxiety Famotidine (Pepcid) 20 mg PO DAILY [facility] Last Admin: 10/05/17 09:11 Dose: 20 mg Flecainide Acetate (Tambocor) 50 mg PO Q12HR [facility] Last Admin: 10/05/17 09:10 Dose: 50 mg Guaifenesin (Robitussin Sf) 200 mg PO Q4H PRN PRN Reason: Cough Hydralazine HCl (Apresoline) 10 mg SLOW IVP Q4H PRN PRN Reason: Systolic BP > 180 Last Admin: 10/04/17 18:06 Dose: 10 mg Latanoprost (Xalatan 0.005% Oph Soln) [address] [facility] Last Admin: 10/04/17 21:09 Dose: 1 drop Lisinopril (Zestril) 20 mg PO BID [facility] Last Admin: 10/05/17 09:11 Dose: 20 mg Loperamide HCl (Imodium) 2 mg PO PRN PRN PRN Reason: Diarrhea/Loose Stools Loratadine (Claritin) 10 mg PO DAILYPRN PRN PRN Reason: Sinus Symptoms Magnesium Hydroxide (Milk Of Magnesium) 30 ml PO DAILYPRN PRN PRN Reason: Constipation Metoprolol Succinate (Toprol Xl) 50 mg PO BID [facility] Last Admin: 10/05/17 09:10 Dose: 50 mg Mineral Oil/White Petrolatum (Eucerin Cream) 0 gm TOP BIDPRN PRN PRN Reason: Dry Skin Nitroglycerin (Nitrostat) 0.4 mg SL Q5MIN PRN PRN Reason: Chest Pain Ondansetron HCl (Zofran Odt) 4 mg PO Q6H PRN PRN Reason: Nausea/Vomiting Ondansetron HCl (Zofran) 4 mg IVP Q6H PRN PRN Reason: Nausea/Vomiting Phenol (Chloraseptic [place] 180 Ml Bot) 0 ml PO PRN PRN PRN Reason: Sore Throat Potassium Chloride (Klor-Con 10) 10 meq PO BID [facility] Last Admin: 10/05/17 09:10 Dose: 10 meq Senna (Senokot) 2 tab PO HSPRN PRN PRN Reason: Constipation Sodium Chloride ([place] Nasal [place] 0.65%) 0 ml EA NARE QIDPRN PRN PRN Reason: Nasal Congestion Zolpidem Tartrate (Ambien) 5 mg PO HSPRN PRN PRN Reason: Insomnia
--- NOTE | 2017-10-05 14:17 | PRG ---
DATE OF SERVICE: 10/05/2017 SUBJECTIVE: Ms. Woodson is doing well. She has not had a near syncopal spells, minor dizziness is n oted not like at admission. OBJECTIVE: VITAL SIGNS: Blood pressure is 159/74, heart rate 64, respiration is 18, temperature 98.3 degrees Fa hrenheit. GENERAL: Reveals an alert and oriented woman, in no apparent distress. NECK: Supple. Jugular veins not distended. CHEST: Coarse crackles. CARDIOVASCULAR: Heart sounds are regular to rate and rhythm. No murmur or gallop. ABDOMEN: Benign. Bowel sounds are positive. EXTREMITIES: Lower extremity without edema, clubbing or cyanosis. DATABASE: EKG reviewed, reveals sinus rhythm. No significant prolongation in QT or the QRS interval s are noted. Telemetry strips reveals no further atrial arrhythmias ever since flecainide initiated. ASSESSMENT AND PLAN: Ms. Woodson is a pleasant 81-year-old woman with history of rheumatic fever as a child who presented with a syncopal spell. She has frequent, although self terminating atrial arrh ythmias on her monitor on admission with rapid rates, which could have contributed to her passing out spell. We discussed the treatment options and ablation is possible . On the other hand for now, we miriam l attempt suppressing her with flecainide, which seems to be working well for her. Two week monitor was requested for further evaluation of any further arrhythmias and to follow up in our office for po ssible scheduling of her ablation at a later date.
[2017-10-05] MEDS: Latanoprost 0.005% Ophth Soln 2.5 ml Bottle EA EYE SCH (20:27)
[2017-10-05] MEDS: Citalopram 20 MG TAB PO SCH (20:28)
[2017-10-06] MEDS: Famotidine 20 MG TAB PO SCH (09:29)
[2017-10-06] MEDS: Lisinopril 20 MG TAB PO SCH (09:30)
[2017-10-06] MEDS: Aspirin 81 mg Enteric Coated Tablet PO SCH (09:30)
[2017-10-06] MEDS: Potassium Chloride 10 MEQ TAB PO SCH ×2 (09:30)
[2017-10-06] MEDS: Flecainide 50 MG TAB PO SCH ×2 (09:30)
[2017-10-06 12:23] VITALS: BP 161/73; TEMP 98.4
--- NOTE | 2017-10-06 18:22 | DIS ---
DATE OF DISCHARGE: 10/06/2017 DISCHARGE DISPOSITION: Home. FOLLOWUP: 1. Follow up with primary care physician, Dr. Jose in 1 week. 2. Follow up with Cardiology, Dr. Weldon and Electrophysiology, Dr. Snider in 1-2 weeks. Event monitor will be arranged. ALLERGIES: The patient is allergic to CELECOXIB and LOVASTATIN. DISCHARGE MEDICATIONS: Flecainide 50 mg b.i.d. Other home medications were resumed. 1. Aspirin 81 mg daily. 2. Celexa 20 mg at bedtime. 3. Clonazepam as needed. 4. Lisinopril 20 mg b.i.d. 5. Toprol-XL 50 mg b.i.d. 6. Omeprazole 40 mg daily. 7. Potassium chloride 10 mEq b.i.d. 8. Travoprost eyedrops at bedtime. INPATIENT CONSULTANTS: Cardiology, Dr. Weldon; Electrophysiology, Dr. Snider. SIGNIFICANT LABORATORY DATA: 1. Troponin maximum of 0.262. 2. BNP 176 3. Creatinine on admission was 1.45, at discharge is 1.05. 4. CBC showed WBC 9.4 with hemoglobin 13.7, hematocrit 41.3, platelet count 208. 5. D-dimer was 0.78. 6. Urinalysis showed 4-6 wbc's with 1+ bacteria. 7. Urine culture was negative at 48 hours. 8. Echocardiogram showed left ventricular ejection fraction of 55% to 60% with mild mitral regurgita tion and trace tricuspid regurgitation. 9. CT angiogram of the chest was negative. 10. CT of the brain was negative. 11. Cervical spine CT was negative. 12. Chest x-ray was negative for acute findings. 13. X-ray of the left shoulder was negative for fractures or dislocation. BRIEF HOSPITAL COURSE: The patient is an 81-year-old female with hypertension, dyslipidemia, and SHERITA D, who presented to the hospital with syncope. She was found to have hematoma over the left frontal scalp. Please refer to the history and physical dated 10/02/2017 for further details. The patient was admitted to the hospital with a diagnosis of syncope. Her workup was consistent with supraventricular tachycardia and possible paroxysmal atrial tachycardia documented on the tele monit or. An echocardiogram showed normal left ventricular ejection fraction of 55% to 60%. The patient w as evaluated by Cardiology and Electrophysiology. An event monitor will be arranged by Cardiology. The patient has been cleared for discharge by Cardiology. Fall precautions with 24-hour supervision was recommended. A base met with magnesium after 1 week is recommended. Primary care physician advised to follow. Orthostatic vitals were negative. Vitals on the day of discharge showed temperature 98.1, pulse rate of 65, blood pressure of 149/67 wi th respirations 14, O2 saturation 95% on room air. The patient was seen and examined on the day of discharge and feels comfortable with discharge nathalie cervantes. Home health care was recommended; however, the patient declined. FINAL DIAGNOSES: 1. Syncope, probably due to cardiac arrhythmias. Event monitor will be arranged from Dr. Weldon's kary smiley. 2. Elevated troponins, probably secondary to demand ischemia. 3. Mild acute kidney injury on chronic kidney disease, stage 3. A repeat base met after 1 week is r ecommended. Primary care physician advised to follow. Lisinopril was continued. A repeat creatinin e was 1.05 4. Suspected urinary tract infection on admission. Antibiotics were not started. Urine cultures we re negative. The patient was advised to monitor for urinary tract infection symptoms. 5. Anxiety, depression 6. Gastroesophageal reflux disease. 7. Glaucoma. 8. Hypertension. 9. Mild hyponatremia. 10. Left shoulder pain, probably secondary to rotator cuff pathology. An outpatient orthopedic cons ultation will be beneficial. 11. Degenerative joint disease. Plan of care was discussed with the patient in detail. She stated understanding. Fall precaution wa s emphasized. Total time coordinating the discharge of this patient was 33 minutes including the counseling.
--- NOTE | 2017-10-10 15:08 | EKG ---
Test Reason : Blood Pressure : / mmHG Vent. Rate : 076 BPM Atrial Rate : 076 BPM P-R Int : 168 ms QRS Dur : 090 ms QT Int : 388 ms P-R-T Axes : 067 017 070 degrees QTc Int : 436 ms Sinus rhythm with marked sinus arrhythmia with Premature atrial complexes in a pattern of bigeminy Septal infarct , age undetermined Abnormal ECG Confirmed by DIANNA TAN D.O. ([id number]), editor managing director ADRIANA SEVILLA ([id number]) on 10/10/2017 3:07:53 PM Referred By: Confirmed By:DIANNA TAN D.O.
--- NOTE | 2017-10-10 15:25 | EKG ---
Test Reason : Blood Pressure : / mmHG Vent. Rate : 120 BPM Atrial Rate : 187 BPM P-R Int : 000 ms QRS Dur : 068 ms QT Int : 258 ms P-R-T Axes : 059 026 086 degrees QTc Int : 364 ms Sinus tachycardia with Fusion complexes / Paroxysmal Atrial tachycardia Abnormal ECG Confirmed by DIANNA TAN D.O. ([id number]), index editor ADRIANA SEVILLA ([id number]) on 10/10/2017 3:24:43 PM Referred By: Confirmed By:DIANNA TAN D.O.
--- NOTE | 2017-10-17 22:57 | EKG ---
Test Reason : Blood Pressure : / mmHG Vent. Rate : 062 BPM Atrial Rate : 062 BPM P-R Int : 188 ms QRS Dur : 084 ms QT Int : 444 ms P-R-T Axes : 063 029 072 degrees QTc Int : 450 ms Normal sinus rhythm Normal ECG When compared with ECG of 02-OCT-2017 16:16, (Unconfirmed) Sinus rhythm has replaced Atrial fibrillation Vent. rate has decreased BY 58 BPM T wave inversion no longer evident in Anterolateral leads Confirmed by Wilda SANCHEZ ([id number]) on 10/17/2017 10:57:15 PM Referred By: [facility] Confirmed By:Wilda SANCHEZ
== END 2017-10-06 14:58 | disposition home or self-care (01) | DRG 309 ==
LOC: ERS 15:47 → 2NO 20:37
PROVIDERS: ADMIT Internal Medicine; ATTEND Internal Medicine
DX: I47.1 Supraventricular tachycardia (principal); I24.8 Other forms of acute ischemic heart disease; N17.9 Acute kidney failure, unspecified; E87.1 Hypo-osmolality and hyponatremia; I34.0 Nonrheumatic mitral (valve) insufficiency; E78.5 Hyperlipidemia, unspecified; R55 Syncope and collapse; S00.03XA Contusion of scalp, initial encounter; W18.30XA Fall on same level, unspecified, initial encounter; Y92.019 Unspecified place in single-family (private) house as the place of occurrence of the external cause; K21.9 Gastro-esophageal reflux disease without esophagitis; F41.9 Anxiety disorder, unspecified; F32.9 Major depressive disorder, single episode, unspecified; Z88.8 Allergy status to other drugs, medicaments and biological substances; Z79.82 Long term (current) use of aspirin; H40.9 Unspecified glaucoma; N18.3 Chronic kidney disease, stage 3 (moderate); M25.512 Pain in left shoulder; M19.90 Unspecified osteoarthritis, unspecified site; I44.0 Atrioventricular block, first degree; I12.9 Hypertensive chronic kidney disease with stage 1 through stage 4 chronic kidney disease, or unspecified chronic kidney disease
CPT/HCPCS: 36415; 36416; 70450; 71045; 71275; 72125; 80048; 80053; 81003; 81015; 82553; 83690; 83735; 83880; 84100; 84484; 85025; 85379; 87086; 93005; 93010; 93306; 96360; G8978-GP-CH; G8979-GP-CH; G8980-GP-CH; G8987-GO-CI; G8988-GO-CI; G8989-GO-CI; J0360

== ENCOUNTER 2017-11-27 11:34 | Day surgery (SDC) | payer MEDICARE, OTHER ==
[2017-11-26 11:24] VITALS: BMI 25.9
[2017-11-27] MEDS ORDERED: Lidocaine 1% w/Epinephrine 1:100K 30 ML VIAL ONE (12:14)
--- NOTE | 2017-11-27 13:30 | OP ---
DATE OF PROCEDURE: 11/27/2017 LINQ LOOP RECORDER IMPLANTATION REPORT REFERRING PHYSICIAN: Dr. Weldon. REASON FOR PROCEDURE: Ms. Woodson is an 81-year-old woman with a history of atrial arrhythmias and s yncopal spells. She had extended monitoring, which failed to capture her highly symptomatic episode. After the monitoring was discontinued, she is here for a permanent loop recorder implantation. PROCEDURE: The patient received prep and drape in the precordial area and the 4th intercostal space was anesthetized on the left side with a standard LINQ recorder insertion kit. An incision was made and the [employer] LINQ, model number [id number] and the serial number [id number], kit was implanted and th e wound was closed with Dermabond. The patient tolerated the procedure well and will be discharged h ome soon. PLAN: Routine monitoring.
== END 2017-11-27 13:38 | disposition home or self-care (01) ==
LOC: CCL 11:34
PROVIDERS: ATTEND Internal Medicine Cardiovascular Disease
PROC: 0JH632Z Insertion of Monitoring Device into Chest Subcutaneous Tissue and Fascia, Percutaneous Approach (ICD-10-PCS; principal; 2017-11-27)
DX: R55 Syncope and collapse (principal); I47.1 Supraventricular tachycardia; I10 Essential (primary) hypertension; E78.5 Hyperlipidemia, unspecified; K21.9 Gastro-esophageal reflux disease without esophagitis; F32.9 Major depressive disorder, single episode, unspecified; F41.9 Anxiety disorder, unspecified; Z79.82 Long term (current) use of aspirin; Z79.899 Other long term (current) drug therapy; Z88.8 Allergy status to other drugs, medicaments and biological substances
CPT/HCPCS: 33282; C1764; J2001

== ENCOUNTER 2018-01-30 10:20 | Outpatient (CLI) | payer MEDICARE | END 2018-01-30 10:21 | disposition home or self-care (01) | LOC: BICRAD 10:20 | PROVIDERS: ATTEND Internal Medicine Cardiovascular Disease | DX: R06.00 Dyspnea, unspecified (principal); I70.0 Atherosclerosis of aorta; Z95.0 Presence of cardiac pacemaker | CPT/HCPCS: 71046 ==

== ENCOUNTER 2018-02-07 06:38 | Day surgery (SDC) | payer MEDICARE ==
[2018-02-06 14:16] VITALS: BMI 26.9
[2018-02-07 07:22] LABS: Hemoglobin 13.6 g/dL (12.0-16.0); Mean Corpuscular HGB CONC 33.1 g/dL (32.0-36.0); Mean Corpuscular Hemoglobin 29.9 pg (27.0-31.0); Mean Corpuscular Volume 90.1 fL (78.0-98.0); Mean Platelet Volume 6.5 fL (7.4-10.4); Platelet Count 213 thou/uL (130-400); RBC Distribution Width 12.4 % (11.5-14.5); Red Blood Cell (RBC) Count 4.56 mill/uL (4.20-5.40); White Blood Cell (WBC) Count 8.5 thou/uL (4.8-10.8)
[2018-02-07] MEDS ORDERED: CEFAZOLIN/Water 2 GM/20 ML SYRINGE ONE (07:25)
[2018-02-07 07:28] LABS: PTT 35.1 SEC (22.9-36.1); Prothrombin Time 12.8 SEC (12.0-14.7)
[2018-02-07 07:38] LABS: Anion Gap 17 mmol/L (10-20); BUN (Urea Nitrogen) 21 mg/dL (9.8-20.1); Calc. Creatinine Clearance 41 mL/min (70-130); Calcium 10.3 mg/dL (7.8-10.44); Carbon Dioxide 22 mmol/L (23-31); Chloride 104 mmol/L (98-107); Estimated GFR-MDRD 46; Glucose 112 mg/dL (83-110); Potassium 4.8 mmol/L (3.5-5.1); Sodium 138 mmol/L (136-145)
[2018-02-07] MEDS ORDERED: Midazolam HCl 2 mg/2 ml Vial ONE (08:13)
[2018-02-07] MEDS ORDERED: Fentanyl 100 MCG/2 ML VIAL ONE (08:13)
[2018-02-07] MEDS ORDERED: Lidocaine 1% (PF) 30 ML VIAL ONE (08:28)
[2018-02-07] MEDS ORDERED: Acetaminophen/Codeine 30-300mg Tablet ONE ×2 (09:42→10:52)
--- NOTE | 2018-02-07 11:08 | RAD ---
PORTABLE CHEST: Date: 02-07-18 Provided Clinical History: Status post pacemaker. FINDINGS: Comparison 10-02-17. Cardiac and mediastinal silhouette is within normal limits. Vascular calcificatio n involves the aortic arch. Left subclavian cardiac pacing device is noted with lead tips overlying t he expected locations of RA and RV. No focal consolidation, pleural fluid, or pneumothorax apparent. IMPRESSION: No evidence for an acute cardiopulmonary process. POS: KARI
--- NOTE | 2018-02-10 23:10 | EKG ---
Test Reason : PREOP Blood Pressure : / mmHG Vent. Rate : 069 BPM Atrial Rate : 069 BPM P-R Int : 192 ms QRS Dur : 082 ms QT Int : 414 ms P-R-T Axes : 063 003 059 degrees QTc Int : 443 ms Normal sinus rhythm Cannot rule out Inferior infarct , age undetermined Abnormal ECG When compared with ECG of 05-OCT-2017 07:13, T wave amplitude has decreased in Anterior leads Confirmed by Wilda SANCHEZ ([id number]) on 02/10/2018 11:10:09 PM Referred By: CHELLE Confirmed By:Wilda SANCHEZ
== END 2018-02-07 12:00 | disposition home or self-care (01) ==
LOC: CCL 06:38
PROVIDERS: ATTEND Internal Medicine Cardiovascular Disease
PROC: 02WA3MZ Revision of Cardiac Lead in Heart, Percutaneous Approach (ICD-10-PCS; principal; 2018-02-07)
DX: T82.120A Displacement of cardiac electrode, initial encounter (principal); I49.5 Sick sinus syndrome; I10 Essential (primary) hypertension; E78.5 Hyperlipidemia, unspecified; K21.9 Gastro-esophageal reflux disease without esophagitis; F41.8 Other specified anxiety disorders; Z79.82 Long term (current) use of aspirin; Z79.899 Other long term (current) drug therapy; Z88.6 Allergy status to analgesic agent; Z88.8 Allergy status to other drugs, medicaments and biological substances; Z95.0 Presence of cardiac pacemaker
CPT/HCPCS: 33217; 71045; 80048; 85027; 85610; 85730; 93005; 93010; 99152; 99153; J2001; J2250; J3010; J3490